=== PATIENT | male | born 1975 | race Caucasian/White ===

== ENCOUNTER 2018-12-25 08:08 | Emergency (ER) | payer BC ==
[2018-12-25 08:51] VITALS: BP 139/93
--- NOTE | 2018-12-25 09:47 | ED ---
Lower Extremity - HPI Summary HPI Summary: 43 yr old the complaint of left calf pain. Onset of pain over the past week, and he feels like he has a charley horse. he states he has new boots that are stiff. He states the pain is worse in the morning and with associated stiffness , but gets better with walking. No fever or chills. No other complaints. - History of Current Complaint Chief Complaint: UCLowerExtremity Stated Complaint: LT LEG PAIN x 3 DAYS Time Seen by Provider: 12/25/18 09:20 Pain Intensity: 4 - Allergies/Home Medications Allergies/Adverse Reactions: Allergies Allergy/AdvReac Type Severity Reaction Status Date / Time No Known Allergies Allergy Verified 12/25/18 08:52 Home Medications: Home Medications Ibuprofen 600 mg PO Q6HR PRN 12/25/18 [History Confirmed 12/25/18] PMH/Surg Hx/FS Hx/Imm Hx Endocrine/Hematology History: Denies: Hx Diabetes, Hx Thyroid Disease Cardiovascular History: Denies: Hx Hypertension Respiratory History: Denies: Hx Asthma Infectious Disease History: No Infectious Disease History: Denies: Hx Hepatitis, Traveled Outside the [place] in Last 30 Days - Family History Known Family History: Positive: None - Social History Alcohol Use: Rare Substance Use Type: Reports: None Smoking Status (MU): Never Smoked Tobacco Review of Systems Constitutional: Negative Positive: Other - left calf pain All Other Systems Reviewed And Are Negative: Yes Physical Exam Triage Information Reviewed: Yes Vital Signs On Initial Exam: Initial Vitals Temp Pulse Resp BP Pulse Ox 98.4 F 79 16 139/93 99 12/25/18 08:47 12/25/18 08:47 12/25/18 08:47 12/25/18 08:47 12/25/18 08:47 Vital Signs Reviewed: Yes Appearance: Positive: Well-Appearing, No Pain Distress Skin: Positive: Warm, Skin Color Reflects Adequate Perfusion Head/Face: Positive: Normal Head/Face Inspection Eyes: Positive: EOMI ENT: Positive: Normal ENT inspection Neck: Positive: Nontender Respiratory/Lung Sounds: Positive: Clear to Auscultation, Breath Sounds Present Cardiovascular: Positive: RRR. Negative: Murmur Abdomen Description: Negative: Distended Musculoskeletal: Positive: Strength/ROM Intact, Other - left calf symmetric to the right. No bruise or redness. Neurological: Positive: Sensory/Motor Intact, Alert, Oriented to Person Place, Time, CN Intact II-III, Speech Normal Psychiatric: Positive: Normal Diagnostics - Vital Signs Vital Signs Temp Pulse Resp BP Pulse Ox 12/25/18 08:47 98.4 F 79 16 139/93 99 - Laboratory Lab Statement: Any lab studies that have been ordered have been reviewed, and results considered in the medical decision making process. - Ultrasound left leg Ultrasound Interpretation Completed By: Radiologist - left calf DVT Lower Extremity Course/Dx - Course Course Of Treatment: 43 yr old with left calf DVT. Plan He does not want an ambulance. He is aware he needs further work up and treatment today. He states he is going to the ER directly from here for further treatmetn. - Diagnoses Provider Diagnoses: Acute deep vein thrombosis (DVT) of calf muscle vein of left lower extremity, Hypertension Discharge ED - Sign-Out/Discharge Documenting (check all that apply): Patient Departure All imaging exams completed and their final reports reviewed: Yes - Discharge Plan Condition: Good Disposition: TRANS HIGHER LVL OF CARE FAC Patient Education Materials: Deep Vein Thrombosis (ED), Hypertension (ED) Referrals: No Primary Care Phys,NOPCP [Primary Care Provider] - [facility] [[facility]] - 1 Day Additional Instructions: YOU HAVE BEEN OFFERED AN AMBULANCE, BUT HAVE STATED THAT YOU ARE GOING TO DRIVE TO THE HOSPITAL ER YOURSELF. DO NOT DELAY. YOU HAVE BLOOD CLOTS IN YOUR LEFT CALF THAT REQUIRE FURTHER LABS< WORK UP and TREATMENT. - Billing Disposition and Condition Condition: GOOD Disposition: Trans Higher Lvl of Care Fac
== END 2018-12-25 10:30 | disposition short-term general hospital (02) ==
LOC: UCCORT 08:08
DX: I82.4Z2 Acute embolism and thrombosis of unspecified deep veins of left distal lower extremity (principal); I10 Essential (primary) hypertension
CPT/HCPCS: 99202; G0463